=== PATIENT | female | born 1960 | race Caucasian/White ===

== ENCOUNTER 2017-06-25 09:17 | Outpatient (CLI) | payer OTHER ==
[~2017-06-25 09:17] MED LIST: ATACAND16 MG; CEFACLOR500 MG; FLEXERIL10 MG PO; GLUCOPHAGE XR500 MG; LEXAPRO5 MG; LIBRAX CAPSULE1 CA1; METOPROLOL SUCC25 MG; NABUMETONE750 MG PO; SYNTHROID125 MCG
== END 2017-06-25 09:22 | disposition home or self-care (01) ==
LOC: SONOGRAMA 09:17
DX: E04.2 Nontoxic multinodular goiter (principal)

== ENCOUNTER 2018-02-21 13:42 | Outpatient (CLI) | payer OTHER | END 2018-02-21 13:52 | disposition home or self-care (01) | LOC: MAMO-SONO 13:42 | DX: Z12.31 Encounter for screening mammogram for malignant neoplasm of breast (principal) ==

== ENCOUNTER 2018-07-15 09:13 | Outpatient (CLI) | payer OTHER | END 2018-07-15 10:56 | disposition home or self-care (01) | LOC: NUCLEAR 09:13 | DX: M81.0 Age-related osteoporosis without current pathological fracture (principal) ==

== ENCOUNTER 2020-03-01 07:51 | Outpatient (CLI) | payer OTHER | END 2020-03-01 08:08 | disposition home or self-care (01) | LOC: SONOGRAMA 07:51 | PROVIDERS: ATTEND Pathology Anatomic Pathology & Clinical Pathology | DX: R59.0 Localized enlarged lymph nodes (principal) ==

== ENCOUNTER → 2020-03-01 09:40 | Outpatient (CLI) | payer OTHER | END | disposition home or self-care (01) | LOC: LAB 09:40 | PROVIDERS: ATTEND Radiology Diagnostic Radiology | DX: N20.0 Calculus of kidney (principal) ==

== ENCOUNTER 2020-03-15 07:55 | Outpatient (CLI) | payer OTHER | END 2020-03-15 08:11 | disposition home or self-care (01) | LOC: NUCLEAR 07:55 | PROVIDERS: ATTEND Internal Medicine Cardiovascular Disease | DX: M65.849 Other synovitis and tenosynovitis, unspecified hand (principal); M81.0 Age-related osteoporosis without current pathological fracture | CPT/HCPCS: 77080; 78306; A9503 ==

== ENCOUNTER 2020-09-28 11:51 | Outpatient (CLI) | payer OTHER | END 2020-09-28 12:08 | disposition home or self-care (01) | LOC: SONOGRAMA 11:51 → MAMO-SONO 12:15 | PROVIDERS: ATTEND Internal Medicine Endocrinology, Diabetes & Metabolism | DX: E04.1 Nontoxic single thyroid nodule (principal) ==

== ENCOUNTER 2021-10-25 15:00 | Inpatient (IN) | payer OTHER ==
[~2021-10-25] VITALS: Ht 172.7 cm; Wt 77.1 kg
[~2021-10-25 15:00] MED LIST changes: +ANASTROZOLE1 MG PO; -ATACAND16 MG; +ATACAND16 MG PO; +CRESTOR20 MG PO; +ESTAZOLAM2 MG PO; -METOPROLOL SUCC25 MG; +METOPROLOL SUCC25 MG PO; +PAXIL10 MG/5 ML PO; +XANAX0.25 MG PO
== END 2021-10-30 14:54 | disposition home or self-care (01) | DRG 581 ==
LOC: ADM 15:00 → CIR.AMB 10-28 05:50 → SURH 10-28 15:00 → EDSTATUS 10-28 15:00 → CIR.AMB 10-28 15:00 → SURG-SUITE 10-28 18:25 → O/R 10-28 18:25 → SURG-SUITE 10-28 18:32
PROVIDERS: Plastic Surgery; ADMIT Surgery; ATTEND Surgery
PROC: 0HRV07Z Replacement of Bilateral Breast with Autologous Tissue Substitute, Open Approach (ICD-10-PCS; 2021-10-28)
PROC: 0HHV0NZ Insertion of Tissue Expander into Bilateral Breast, Open Approach (ICD-10-PCS; 2021-10-28)
PROC: 07T80ZZ Resection of Right Internal Mammary Lymphatic, Open Approach (ICD-10-PCS; principal; 2021-10-28 15:30)
PROC: 0HTV0ZZ Resection of Bilateral Breast, Open Approach (ICD-10-PCS; 2021-10-28 15:30)
DX: D05.01 Lobular carcinoma in situ of right breast (principal); N60.92 Unspecified benign mammary dysplasia of left breast; Z20.822 Contact with and (suspected) exposure to COVID-19; Z90.13 Acquired absence of bilateral breasts and nipples; N64.81 Ptosis of breast

== ENCOUNTER 2021-11-04 11:56 | Emergency (ER) | payer OTHER ==
[~2021-11-04] VITALS: Ht 172.7 cm; Wt 77.1 kg
[2021-11-04] MEDS ORDERED: HYDRODIURIL12.5 MG PO (12:14)
== END 2021-11-04 19:49 | disposition home or self-care (01) ==
LOC: ER 11:56
DX: K59.00 Constipation, unspecified (principal)

== ENCOUNTER 2021-11-25 11:11 | Outpatient (CLI) | payer OTHER ==
[~2021-11-25 11:11] MED LIST changes: +HYDRODIURIL12.5 MG PO
== END 2021-11-25 11:12 | disposition home or self-care (01) ==
LOC: SONOGRAMA 11:11
PROVIDERS: ATTEND Surgery
DX: N61.0 Mastitis without abscess (principal); N60.11 Diffuse cystic mastopathy of right breast; N60.12 Diffuse cystic mastopathy of left breast

== ENCOUNTER 2021-11-25 11:47 | Outpatient (CLI) | payer OTHER | END 2021-11-25 12:13 | disposition home or self-care (01) | LOC: LAB 11:47 | PROVIDERS: ATTEND Surgery | DX: N61.1 Abscess of the breast and nipple (principal); N61.0 Mastitis without abscess ==

== ENCOUNTER 2021-12-07 10:08 | Outpatient (CLI) | payer OTHER | END 2021-12-07 10:51 | disposition home or self-care (01) | LOC: ASH CLINIC 10:08 | DX: U07.1 COVID-19 (principal) ==

== ENCOUNTER 2022-01-17 11:10 | Outpatient (CLI) | payer OTHER | END 2022-01-17 11:11 | disposition home or self-care (01) | LOC: TOM 11:10 | PROVIDERS: ATTEND Internal Medicine Endocrinology, Diabetes & Metabolism | DX: J31.0 Chronic rhinitis (principal); E04.1 Nontoxic single thyroid nodule; I88.9 Nonspecific lymphadenitis, unspecified ==

== ENCOUNTER → 2022-02-02 | Outpatient (CLI) | payer OTHER ==
[~2022-02-02] MED LIST changes: +FEMARA2.5 MG; +SYNTHROID112 MCG
== END | disposition home or self-care (01) ==
LOC: SONOGRAMA 08:18
PROVIDERS: ATTEND Pathology Anatomic Pathology & Clinical Pathology
DX: I88.9 Nonspecific lymphadenitis, unspecified (principal)

== ENCOUNTER 2022-02-17 05:39 | Day surgery (SDC) | payer OTHER ==
[~2022-02-17] VITALS: Ht 172.7 cm; Wt 78.9 kg
== END 2022-02-17 12:55 | disposition home or self-care (01) ==
LOC: CIR.AMB 05:39
PROVIDERS: ATTEND Plastic Surgery
DX: D05.01 Lobular carcinoma in situ of right breast (principal); Z90.13 Acquired absence of bilateral breasts and nipples; L90.5 Scar conditions and fibrosis of skin; Z20.822 Contact with and (suspected) exposure to COVID-19; Z88.8 Allergy status to other drugs, medicaments and biological substances; I10 Essential (primary) hypertension; Z86.16 Personal history of COVID-19; E11.9 Type 2 diabetes mellitus without complications; Z85.850 Personal history of malignant neoplasm of thyroid; Z79.84 Long term (current) use of oral hypoglycemic drugs
CPT/HCPCS: 11970; L8699

== ENCOUNTER 2022-06-20 12:36 | Outpatient (CLI) | payer OTHER | END 2022-06-20 12:38 | disposition home or self-care (01) | LOC: NUCLEAR 12:36 | PROVIDERS: ATTEND Internal Medicine Cardiovascular Disease | DX: M83 Adult osteomalacia (principal) ==

== ENCOUNTER 2023-03-06 10:28 | Outpatient (CLI) | payer OTHER | END 2023-03-06 10:45 | disposition home or self-care (01) | LOC: SONOGRAMA 10:28 | PROVIDERS: ATTEND Internal Medicine Endocrinology, Diabetes & Metabolism | DX: E04.1 Nontoxic single thyroid nodule (principal); Z88.5 Allergy status to narcotic agent ==

== ENCOUNTER 2023-03-09 16:48 | Emergency (ER) | payer OTHER ==
[~2023-03-09] VITALS: Ht 170.2 cm; Wt 74.8 kg
[2023-03-09 18:03] LABS: HEMATOCRIT 42.5 % (36.0-45.00); HEMOGLOBIN 14.8 g/dL (12.0-15.00); MEAN CELL VOLUME 89.5 fL (80.00-100.00); MEAN CORPUSCULAR HGB CONC 34.7 g/dl (32.0-36.0); PLATELET COUNT 263 K/uL (150-450); RED BLOOD COUNT 4.76 M/uL (4.00-6.00); RED CELL DISTRIBUTION WIDTH 13.6 % (11.5-14.5)
[2023-03-09 18:03] LABS: URINE APPEARANCE Clear; URINE BILIRRUBIN Negative (NEGATIVE); URINE BLOOD Negative; URINE COLOR Yellow; URINE GLUCOSE Negative (NEGATIVE); URINE LEUKOCYTE Negative; URINE NITRATE Negative; URINE PROTEIN Negative (NEGATIVE); URINE UROBILINOGEN 0.2 E.U./dl
[2023-03-09 18:08] LABS: URINE BACTERIA 1.2 uL (0.0-1933); URINE EPITHELIAL CELLS 0.9 uL (0.0-38.8); URINE RBC 0.7 uL (0.0-20.8); URINE WBC 0.4 uL (0.0-23.2)
[2023-03-09 18:24] LABS: ALBUMIN 4.2 gm/dL (3.4-5.0); BILIRUBIN TOTAL 0.41 mg/dL (0.3-1.2); BILIRUBIN,CONJUGATED 0.16 mg/dL (0.0-0.2); BILIRUBIN,UNCONJUGATED 0.25 mg/dL (0.0-0.6); CALCIUM 9.2 mg/dL (8.5-10.1); CREATININE SERUM 1.1 mg/dL (0.55-1.02); GFR 50.17; GLOBULINA 3.9 G/DL (2.4-3.5); POTASSIUM 3.82 mEq/L (3.5-5.1); TOTAL PROTEIN 8.1 gm/dL (6.4-8.2)
[2023-03-09] MEDS ORDERED: CARAFATE1 GM PO (19:13)
[2023-03-09] MEDS ORDERED: PEPCID AC20 MG PO (19:13)
[2023-03-09] MEDS ORDERED: LEVSIN/SL0.125 MG SL (19:13)
== END 2023-03-09 19:29 | disposition home or self-care (01) ==
LOC: ER 16:48
PROVIDERS: General Practice
DX: K29.70 Gastritis, unspecified, without bleeding (principal); Z88.8 Allergy status to other drugs, medicaments and biological substances; E11.9 Type 2 diabetes mellitus without complications; Z79.84 Long term (current) use of oral hypoglycemic drugs; Z85.89 Personal history of malignant neoplasm of other organs and systems; I10 Essential (primary) hypertension

== ENCOUNTER 2023-04-07 10:31 | Emergency (ER) | payer OTHER ==
[~2023-04-07] VITALS: Ht 172.7 cm; Wt 68.9 kg
[~2023-04-07 10:31] MED LIST changes: +CARAFATE1 GM PO; +LEVSIN/SL0.125 MG SL; +PEPCID AC20 MG PO
[2023-04-07 13:23] LABS: URINE APPEARANCE Clear; URINE BILIRRUBIN Negative (NEGATIVE); URINE BLOOD Negative; URINE COLOR Yellow; URINE GLUCOSE Negative (NEGATIVE); URINE LEUKOCYTE Negative; URINE NITRATE Negative; URINE PROTEIN Negative (NEGATIVE); URINE UROBILINOGEN 0.2 E.U./dl
[2023-04-07 13:34] LABS: URINE BACTERIA 2.5 uL (0.0-1933); URINE EPITHELIAL CELLS 0.1 uL (0.0-38.8); URINE RBC 0.9 uL (0.0-20.8); URINE WBC 0 uL (0.0-23.2)
[2023-04-07 13:54] LABS: ALBUMIN 3.5 gm/dL (3.4-5.0); BILIRUBIN TOTAL 0.56 mg/dL (0.3-1.2); CALCIUM 8.8 mg/dL (8.5-10.1); CREATININE SERUM 1.03 mg/dL (0.55-1.02); GFR 54.12; GLOBULINA 3.5 G/DL (2.4-3.5); HEMATOCRIT 38.9 % (36.0-45.00); HEMOGLOBIN 13.1 g/dL (12.0-15.00); MEAN CELL VOLUME 90.4 fL (80.00-100.00); MEAN CORPUSCULAR HEMOGLOBIN 30.3 pg (27.00-32.0); MEAN CORPUSCULAR HGB CONC 33.6 g/dl (32.0-36.0); PLATELET COUNT 210 K/uL (150-450); POTASSIUM 3.95 mEq/L (3.5-5.1); RED CELL DISTRIBUTION WIDTH 12.9 % (11.5-14.5)
== END 2023-04-07 17:31 | disposition home or self-care (01) ==
LOC: ER 10:32
PROVIDERS: Emergency Medicine
DX: K29.70 Gastritis, unspecified, without bleeding (principal); T50.995A Adverse effect of other drugs, medicaments and biological substances, initial encounter; Y92.89 Other specified places as the place of occurrence of the external cause; C50.919 Malignant neoplasm of unspecified site of unspecified female breast; Z88.8 Allergy status to other drugs, medicaments and biological substances

== ENCOUNTER 2024-01-02 09:34 | Outpatient (CLI) | payer OTHER | END 2024-01-02 09:42 | disposition home or self-care (01) | LOC: SONOGRAMA 09:34 | PROVIDERS: ATTEND Internal Medicine Endocrinology, Diabetes & Metabolism | DX: E04.1 Nontoxic single thyroid nodule (principal); I88.9 Nonspecific lymphadenitis, unspecified ==

== ENCOUNTER 2024-02-27 07:45 | Outpatient (CLI) | payer OTHER | END 2024-02-27 07:58 | disposition home or self-care (01) | LOC: TOM 07:45 | PROVIDERS: ATTEND Neurological Surgery | DX: I67.1 Cerebral aneurysm, nonruptured (principal) ==